=== PATIENT | female | born 1960 | race Asian ===

== ENCOUNTER 2023-09-18 15:08 | Emergency (ER) | payer OTHER ==
[~2023-09-18] VITALS: Ht 162.6 cm; Wt 72.6 kg
[2023-09-18 15:19] VITALS: BP 164/85; PULSE 70; RESP 16; TEMP 98.4; O2SAT 100
[2023-09-18] MEDS ORDERED: ACETAMINOPHEN EXTRA STRENGTH 500 MG TAB PO ONE (16:05)
[2023-09-18] MEDS ORDERED: LIDOCAINE 5% 1 EA PATCH TP ONE (16:05)
[2023-09-18] MEDS ORDERED: CYCLOBENZAPRINE 10 MG TAB PO ONE (16:05)
[2023-09-18] MEDS ORDERED: ACET-10509 PO (17:38)
[2023-09-18] MEDS ORDERED: IBUP-2213 PO (17:38)
[2023-09-18] MEDS ORDERED: LID5T TP (17:38)
[2023-09-18] MEDS ORDERED: KETOROLAC 30 MG/ML VIAL IM ONE (17:40)
[2023-09-18 18:11] VITALS: BP 165/64; PULSE 65; RESP 16; TEMP 98.4; O2SAT 97
== END 2023-09-18 18:11 | disposition home or self-care (01) ==
LOC: MED 15:08
DX: S06.9X9A Unspecified intracranial injury with loss of consciousness of unspecified duration, initial encounter (principal); S13.4XXA Sprain of ligaments of cervical spine, initial encounter; S43.401A Unspecified sprain of right shoulder joint, initial encounter; S33.5XXA Sprain of ligaments of lumbar spine, initial encounter; I10 Essential (primary) hypertension; Z79.899 Other long term (current) drug therapy; Z79.1 Long term (current) use of non-steroidal anti-inflammatories (NSAID); V43.52XA Car driver injured in collision with other type car in traffic accident, initial encounter; Y93.89 Activity, other specified; Y92.410 Unspecified street and highway as the place of occurrence of the external cause; Y99.8 Other external cause status
CPT/HCPCS: 70450; 72125; 73030; 96372; 99285; J1885